=== PATIENT | male | born 1985 | race Caucasian/White ===

== ENCOUNTER 2022-11-16 17:56 | Emergency (ER) | payer BC ==
[~2022-11-16] VITALS: Ht 179.1 cm; Wt 90.7 kg
[~2022-11-16 17:56] MED LIST: BACTRIM DS1 TAB PO; BOOSTRIX IM; KEFLEX500 MG PO; NO
[2022-11-16 18:03] VITALS: BP 138/86
[2022-11-16] MEDS ORDERED: OMNI-PAC300 MG PO (18:07)
[2022-11-16 18:15] VITALS: BP 137/95
[2022-11-16 18:30] VITALS: BP 137/95
== END 2022-11-16 18:40 | disposition home or self-care (01) | DRG 605 ==
LOC: ED 17:56
PROC: 0HQKXZZ Repair Right Lower Leg Skin, External Approach (ICD-10-PCS; principal; 2022-11-16)
DX: S81.811A Laceration without foreign body, right lower leg, initial encounter (principal); Z23 Encounter for immunization; W45.8XXA Other foreign body or object entering through skin, initial encounter